=== PATIENT | male | born 1935 | race Caucasian/White ===

== ENCOUNTER 2017-07-23 18:57 | Inpatient (IN) | payer OTHER ==
[~2017-07-23] VITALS: Ht 182.9 cm; Wt 76.4 kg
[2017-07-23 20:18] LABS: BASOPHIL % 0.4 % (0-2); PLATELET COUNT 330 x10^3mcL (130-400)
[2017-07-23 20:20] LABS: RED CELL DISTRIBUTION WIDTH 17.5 % (11.5-14.5)
[2017-07-23 20:22] LABS: CALCIUM 8.5 mg/dL (8.5-10.1); CARBON DIOXIDE 31.5 mmol/L (21-32); CHLORIDE SERUM 103 mmol/L (98-107); CREATININE SERUM 1.2 mg/dL (0.7-1.3); GLUCOSE SERUM 115 mg/dL (74-106); POTASSIUM SERUM 3.5 mmol/L (3.5-5.1); SODIUM SERUM 142 mmol/L (136-145)
[2017-07-23 20:27] LABS: ALKALINE PHOSPHATASE 81 U/L (46-116); ALT/SGPT 18 U/L (16-63); BILIRUBIN TOTAL 0.3 mg/dL (0.20-1.00); TOTAL PROTEIN, SERUM 7.9 g/dL (6.4-8.2)
[2017-07-23 20:28] LABS: ALBUMIN 2.9 g/dL (3.4-5.0)
[2017-07-23 20:58] LABS: AST/SGOT 26 U/L (15-37)
[2017-07-23 22:06] LABS: UA SPECIFIC GRAVITY 1.015 (1.005-1.035); microscopic required? YES; urine erythrocyte TRACE (NEGATIVE)
[2017-07-23] MEDS ORDERED: ZESTRIL20 MG PO (22:54)
[2017-07-23] MEDS ORDERED: COLACE100 MG PO (22:55)
[2017-07-23] MEDS ORDERED: APAP500 MG PO (22:55)
[2017-07-23] MEDS ORDERED: SENNA8.6 M2 PO (22:56)
[2017-07-23 23:35] VITALS: BP 181/80
[2017-07-24] MEDS ORDERED: ARICEPT5 MG PO (00:06)
[2017-07-24 00:18] VITALS: BP 151/79
[2017-07-24 00:37] LABS: RED BLOOD CELLS 3.73 M/mm3 (4.52-5.90)
[2017-07-24 00:55] LABS: AMPHETAMINE QUAL UR NONE DETECTED (NEG <=1000)
[2017-07-24 01:09] LABS: IRON 36 ug/dL (65-170)
[2017-07-24 01:11] LABS: TOTAL IRON BINDING CAPACITY 225 ug/dL (250-450)
[2017-07-24 01:17] LABS: CHOLESTEROL/HDL RATIO 2.5; MAGNESIUM 1.9 mg/dL (1.8-2.4); PHOSPHOROUS 2.7 mg/dL (2.5-4.9)
[2017-07-24 01:30] LABS: FREE T4 0.84 ng/dL (0.76-1.46); FREE THYROXINE INDEX 1.7 ug/dL (1.4-4.5); T4(THYROXINE) 5.3 ug/dL (4.7-13.3)
[2017-07-24 01:53] LABS: T3 TOTAL 0.9 ng/mL
[2017-07-24 05:55] VITALS: BP 155/78
[2017-07-24 06:41] LABS: BASOPHIL % 0.4 % (0-2); PLATELET COUNT 269 x10^3mcL (130-400)
[2017-07-24 06:56] LABS: RED CELL DISTRIBUTION WIDTH 17.9 % (11.5-14.5)
[2017-07-24 06:58] LABS: CALCIUM 8.1 mg/dL (8.5-10.1); CARBON DIOXIDE 27.6 mmol/L (21-32); CHLORIDE SERUM 106 mmol/L (98-107); CREATININE SERUM 0.9 mg/dL (0.7-1.3); GLUCOSE SERUM 82 mg/dL (74-106); MAGNESIUM 1.8 mg/dL (1.8-2.4); PHOSPHOROUS 3.1 mg/dL (2.5-4.9); POTASSIUM SERUM 3.1 mmol/L (3.5-5.1); SODIUM SERUM 140 mmol/L (136-145)
[2017-07-24 14:10] VITALS: BP 155/77
[2017-07-24 18:00] VITALS: BP 174/90
[2017-07-24 19:45] VITALS: BP 139/67
[2017-07-25 05:58] VITALS: BP 190/90
[2017-07-25 06:02] VITALS: BP 182/92
[2017-07-25 06:27] LABS: CALCIUM 8.5 mg/dL (8.5-10.1); CARBON DIOXIDE 27.3 mmol/L (21-32); CHLORIDE SERUM 103 mmol/L (98-107); CREATININE SERUM 0.9 mg/dL (0.7-1.3); GLUCOSE SERUM 78 mg/dL (74-106); POTASSIUM SERUM 3.4 mmol/L (3.5-5.1); SODIUM SERUM 139 mmol/L (136-145)
[2017-07-25 06:38] LABS: BASOPHIL % 0.7 % (0-2); PLATELET COUNT 277 x10^3mcL (130-400)
[2017-07-25 06:56] VITALS: BP 180/82
[2017-07-25 09:43] VITALS: BP 183/84
[2017-07-25 12:30] VITALS: BP 163/73
[2017-07-25 20:54] VITALS: BP 183/87
[2017-07-26] VITALS (8 sets, daily range): BP systolic 119–182; BP diastolic 63–102
[2017-07-26 06:39] LABS: CALCIUM 8.4 mg/dL (8.5-10.1); CARBON DIOXIDE 27.7 mmol/L (21-32); CHLORIDE SERUM 104 mmol/L (98-107); CREATININE SERUM 0.8 mg/dL (0.7-1.3); GLUCOSE SERUM 107 mg/dL (74-106); POTASSIUM SERUM 3.4 mmol/L (3.5-5.1); SODIUM SERUM 138 mmol/L (136-145)
[2017-07-26 06:53] LABS: BASOPHIL % 0.3 % (0-2); PLATELET COUNT 257 x10^3mcL (130-400)
[2017-07-26 07:01] LABS: RED CELL DISTRIBUTION WIDTH 17.8 % (11.5-14.5)
[2017-07-27] VITALS (8 sets, daily range): BP systolic 152–178; BP diastolic 76–102
[2017-07-27 06:39] LABS: CALCIUM 8.9 mg/dL (8.5-10.1); CARBON DIOXIDE 26.7 mmol/L (21-32); CHLORIDE SERUM 102 mmol/L (98-107); CREATININE SERUM 0.9 mg/dL (0.7-1.3); GLUCOSE SERUM 104 mg/dL (74-106); MAGNESIUM 1.9 mg/dL (1.8-2.4); PHOSPHOROUS 3.4 mg/dL (2.5-4.9); POTASSIUM SERUM 3.5 mmol/L (3.5-5.1); SODIUM SERUM 138 mmol/L (136-145)
[2017-07-27 06:53] LABS: BASOPHIL % 0.3 % (0-2); PLATELET COUNT 316 x10^3mcL (130-400)
[2017-07-28 06:15] VITALS: BP 163/82
[2017-07-28 06:44] LABS: BASOPHIL % 0.2 % (0-2); PLATELET COUNT 274 x10^3mcL (130-400)
[2017-07-28 06:47] LABS: CALCIUM 8.9 mg/dL (8.5-10.1); CARBON DIOXIDE 27.8 mmol/L (21-32); CHLORIDE SERUM 103 mmol/L (98-107); CREATININE SERUM 0.9 mg/dL (0.7-1.3); GLUCOSE SERUM 100 mg/dL (74-106); MAGNESIUM 1.9 mg/dL (1.8-2.4); PHOSPHOROUS 3.6 mg/dL (2.5-4.9); POTASSIUM SERUM 3.3 mmol/L (3.5-5.1); SODIUM SERUM 137 mmol/L (136-145)
[2017-07-28 08:00] VITALS: BP 147/74
[2017-07-28 11:05] VITALS: Ht 182.9 cm; Wt 76.4 kg
[2017-07-28 14:10] VITALS: BP 154/67
[2017-07-28 20:08] VITALS: BP 132/65
[2017-07-29 05:56] VITALS: BP 139/77
[2017-07-29 07:06] LABS: BASOPHIL % 0.4 % (0-2); PLATELET COUNT 261 x10^3mcL (130-400)
[2017-07-29 07:19] LABS: RED CELL DISTRIBUTION WIDTH 17.8 % (11.5-14.5)
[2017-07-29 07:20] LABS: CALCIUM 8.9 mg/dL (8.5-10.1); CARBON DIOXIDE 25.7 mmol/L (21-32); CHLORIDE SERUM 107 mmol/L (98-107); GLUCOSE SERUM 99 mg/dL (74-106); PHOSPHOROUS 3.4 mg/dL (2.5-4.9); POTASSIUM SERUM 3.6 mmol/L (3.5-5.1); SODIUM SERUM 141 mmol/L (136-145)
[2017-07-29 14:11] VITALS: BP 156/71
[2017-07-29 18:12] VITALS: BP 156/80
[2017-07-29 20:45] VITALS: BP 170/83
[2017-07-30 05:33] VITALS: BP 179/86
[2017-07-30 06:08] LABS: BASOPHIL % 0.6 % (0-2); PLATELET COUNT 293 x10^3mcL (130-400)
[2017-07-30 06:24] LABS: RED CELL DISTRIBUTION WIDTH 18.3 % (11.5-14.5)
[2017-07-30 06:36] LABS: CALCIUM 8.7 mg/dL (8.5-10.1); CARBON DIOXIDE 25.7 mmol/L (21-32); CHLORIDE SERUM 105 mmol/L (98-107); CREATININE SERUM 0.8 mg/dL (0.7-1.3); GLUCOSE SERUM 105 mg/dL (74-106); MAGNESIUM 1.7 mg/dL (1.8-2.4); PHOSPHOROUS 3.2 mg/dL (2.5-4.9); POTASSIUM SERUM 3.3 mmol/L (3.5-5.1); SODIUM SERUM 139 mmol/L (136-145)
[2017-07-30 06:45] VITALS: BP 135/68
[2017-07-30 08:15] VITALS: BP 106/56
[2017-07-30 18:06] VITALS: BP 156/74
[2017-07-31 06:05] LABS: BASOPHIL % 0.3 % (0-2); PLATELET COUNT 303 x10^3mcL (130-400)
[2017-07-31 06:32] LABS: RED CELL DISTRIBUTION WIDTH 17.8 % (11.5-14.5)
[2017-07-31 06:33] VITALS: BP 185/92
[2017-07-31 06:37] LABS: CALCIUM 8.8 mg/dL (8.5-10.1); CHLORIDE SERUM 106 mmol/L (98-107); CREATININE SERUM 0.8 mg/dL (0.7-1.3); GLUCOSE SERUM 96 mg/dL (74-106); MAGNESIUM 1.6 mg/dL (1.8-2.4); PHOSPHOROUS 2.9 mg/dL (2.5-4.9); POTASSIUM SERUM 3.4 mmol/L (3.5-5.1); SODIUM SERUM 140 mmol/L (136-145)
[2017-07-31 07:23] VITALS: BP 159/85
[2017-07-31 10:45] VITALS: BP 163/79
[2017-07-31 17:37] VITALS: BP 164/79
[2017-07-31 19:42] VITALS: BP 142/52
[2017-08-01 05:51] VITALS: BP 157/85
[2017-08-01 07:45] VITALS: BP 166/67
[2017-08-01 08:26] LABS: BASOPHIL % 0.7 % (0-2); PLATELET COUNT 332 x10^3mcL (130-400)
[2017-08-01 08:33] LABS: RED CELL DISTRIBUTION WIDTH 17.5 % (11.5-14.5)
[2017-08-01 11:01] LABS: CALCIUM 8.8 mg/dL (8.5-10.1); CARBON DIOXIDE 28.2 mmol/L (21-32); CHLORIDE SERUM 105 mmol/L (98-107); CREATININE SERUM 0.7 mg/dL (0.7-1.3); GLUCOSE SERUM 104 mg/dL (74-106); MAGNESIUM 1.8 mg/dL (1.8-2.4); PHOSPHOROUS 3.1 mg/dL (2.5-4.9); POTASSIUM SERUM 3.3 mmol/L (3.5-5.1); SODIUM SERUM 139 mmol/L (136-145)
[2017-08-01 12:36] VITALS: BP 127/76
[2017-08-01 18:36] VITALS: BP 140/60
[2017-08-01 21:00] VITALS: BP 156/72
[2017-08-02 17:26] VITALS: BP 194/87
[2017-08-02 18:07] VITALS: BP 139/74
[2017-08-03 06:00] VITALS: BP 126/75
[2017-08-03 09:00] VITALS: BP 124/73
[2017-08-03 11:36] LABS: BASOPHIL % 0.7 % (0-2); PLATELET COUNT 354 x10^3mcL (130-400)
[2017-08-03 11:37] LABS: RED CELL DISTRIBUTION WIDTH 17.6 % (11.5-14.5)
[2017-08-03 11:59] VITALS: BP 111/56
[2017-08-03 12:07] LABS: CALCIUM 9.1 mg/dL (8.5-10.1); CARBON DIOXIDE 28.4 mmol/L (21-32); CHLORIDE SERUM 101 mmol/L (98-107); CREATININE SERUM 0.9 mg/dL (0.7-1.3); GLUCOSE SERUM 133 mg/dL (74-106); MAGNESIUM 1.7 mg/dL (1.8-2.4); POTASSIUM SERUM 3.5 mmol/L (3.5-5.1); SODIUM SERUM 137 mmol/L (136-145)
[2017-08-03 17:27] VITALS: BP 119/87
[2017-08-03 20:19] VITALS: BP 101/53
[2017-08-04 05:40] VITALS: BP 162/75
[2017-08-04 06:54] LABS: BASOPHIL % 0.5 % (0-2); PLATELET COUNT 383 x10^3mcL (130-400)
[2017-08-04 07:02] LABS: RED CELL DISTRIBUTION WIDTH 17.5 % (11.5-14.5)
[2017-08-04 07:05] LABS: CALCIUM 8.8 mg/dL (8.5-10.1); CARBON DIOXIDE 31.5 mmol/L (21-32); CHLORIDE SERUM 101 mmol/L (98-107); GLUCOSE SERUM 85 mg/dL (74-106); MAGNESIUM 1.9 mg/dL (1.8-2.4); PHOSPHOROUS 3.7 mg/dL (2.5-4.9); POTASSIUM SERUM 3.7 mmol/L (3.5-5.1); SODIUM SERUM 136 mmol/L (136-145)
[2017-08-04 08:00] VITALS: BP 102/46
[2017-08-04 10:15] VITALS: BP 117/59
[2017-08-04 13:46] VITALS: BP 138/65
[2017-08-04 16:34] VITALS: BP 99/54
[2017-08-04 19:30] VITALS: BP 138/65
[2017-08-05 05:24] VITALS: BP 162/69
[2017-08-05 06:27] LABS: BASOPHIL % 1.1 % (0-2)
[2017-08-05 06:42] LABS: PLATELET COUNT 401 x10^3mcL (130-400); RED CELL DISTRIBUTION WIDTH 17.3 % (11.5-14.5)
[2017-08-05 06:44] LABS: CALCIUM 9.2 mg/dL (8.5-10.1); CARBON DIOXIDE 30.6 mmol/L (21-32); CHLORIDE SERUM 101 mmol/L (98-107); GLUCOSE SERUM 92 mg/dL (74-106); POTASSIUM SERUM 3.8 mmol/L (3.5-5.1); SODIUM SERUM 138 mmol/L (136-145)
[2017-08-05 07:30] VITALS: BP 140/65
[2017-08-05 13:00] VITALS: BP 140/65
[2017-08-05 19:28] VITALS: BP 119/51
[2017-08-06 04:58] VITALS: BP 168/70
[2017-08-06 09:01] VITALS: BP 120/63
[2017-08-06 09:53] LABS: CALCIUM 8.4 mg/dL (8.5-10.1); CARBON DIOXIDE 32.1 mmol/L (21-32); CHLORIDE SERUM 102 mmol/L (98-107); CREATININE SERUM 1.1 mg/dL (0.7-1.3); GLUCOSE SERUM 118 mg/dL (74-106); POTASSIUM SERUM 3.8 mmol/L (3.5-5.1); SODIUM SERUM 139 mmol/L (136-145)
[2017-08-06 12:32] VITALS: BP 126/61
[2017-08-06 17:08] VITALS: BP 156/68
[2017-08-06 20:53] VITALS: BP 165/73
[2017-08-06 22:53] VITALS: BP 165/73
[2017-08-07 05:45] VITALS: BP 160/75
[2017-08-07 07:46] LABS: PLATELET COUNT 356 x10^3mcL (130-400)
[2017-08-07 07:55] LABS: RED CELL DISTRIBUTION WIDTH 16.8 % (11.5-14.5)
[2017-08-07 08:01] LABS: CALCIUM 8.7 mg/dL (8.5-10.1); CHLORIDE SERUM 104 mmol/L (98-107); CREATININE SERUM 0.8 mg/dL (0.7-1.3); GLUCOSE SERUM 89 mg/dL (74-106); MAGNESIUM 1.7 mg/dL (1.8-2.4); PHOSPHOROUS 3.1 mg/dL (2.5-4.9); POTASSIUM SERUM 3.8 mmol/L (3.5-5.1); SODIUM SERUM 138 mmol/L (136-145)
[2017-08-07 09:30] VITALS: BP 115/58
[2017-08-07] MEDS ORDERED: CEL20 PO (13:29)
[2017-08-07] MEDS ORDERED: VITC PO (13:29)
[2017-08-07] MEDS ORDERED: ISO10 PO (13:29)
[2017-08-07] MEDS ORDERED: FERL PO (13:29)
[2017-08-07] MEDS ORDERED: CYCLOBENZAPRINE5 MG PO (13:29)
[2017-08-07] MEDS ORDERED: QUETIAPINE FUMA25 M1 PO (13:29)
[2017-08-07] MEDS ORDERED: METOPROLOL TART25 M1 PO (13:29)
[2017-08-07] MEDS ORDERED: ZES20 PO (13:29)
[2017-08-07 14:47] VITALS: BP 149/72
[2017-08-07 20:42] VITALS: BP 164/62
[2017-08-08] MEDS ORDERED: VITC PO (11:34)
[2017-08-08] MEDS ORDERED: CYCLOBENZAPRINE5 MG PO (11:34)
[2017-08-08] MEDS ORDERED: FEROSUL325 MG PO (11:34)
[2017-08-08] MEDS ORDERED: ZES20 PO (11:34)
[2017-08-08] MEDS ORDERED: ARICEPT5 MG PO (11:34)
== END 2017-08-07 21:23 | disposition home health service (06) | DRG 56 ==
LOC: ED 18:57 → DU 22:44 → MU 07-30 08:53 → DU 08-02 16:51 → MU 08-03 18:00
PROVIDERS: Emergency Medicine; Family Medicine; Student in an Organized Health Care Education/Training Program
DX: G30.9 Alzheimer's disease, unspecified (principal); G93.41 Metabolic encephalopathy; N17.0 Acute kidney failure with tubular necrosis; I42.0 Dilated cardiomyopathy; E44.0 Moderate protein-calorie malnutrition; F33.1 Major depressive disorder, recurrent, moderate; F02.80 Dementia in other diseases classified elsewhere, unspecified severity, without behavioral disturbance, psychotic disturbance, mood disturbance, and anxiety; I16.0 Hypertensive urgency; I69.392 Facial weakness following cerebral infarction; R41.9 Unspecified symptoms and signs involving cognitive functions and awareness; J32.2 Chronic ethmoidal sinusitis; M50.33 Other cervical disc degeneration, cervicothoracic region; M50.31 Other cervical disc degeneration, high cervical region; M50.321 Other cervical disc degeneration at C4-C5 level; M50.322 Other cervical disc degeneration at C5-C6 level; M50.323 Other cervical disc degeneration at C6-C7 level; D63.8 Anemia in other chronic diseases classified elsewhere; E87.6 Hypokalemia; E83.42 Hypomagnesemia; Z68.24 Body mass index [BMI] 24.0-24.9, adult; Z96.642 Presence of left artificial hip joint; Z85.820 Personal history of malignant melanoma of skin; Z66 Do not resuscitate
CPT/HCPCS: 83880; 84439; 92610; 97110-GP; 97116-GP; 97530-GP; J0360; J1630; J1885; J2060; J3480; J3490; J7030; Q0092

== ENCOUNTER 2017-09-05 03:15 | Emergency (ER) | payer OTHER ==
[~2017-09-05] VITALS: Ht 188 cm; Wt 79.4 kg
[~2017-09-05 03:15] MED LIST: APAP500 MG PO; ARICEPT5 MG PO; CEL20 PO; COLACE100 MG PO; CYCLOBENZAPRINE5 MG PO; FERL PO; FEROSUL325 MG PO; ISO10 PO; METOPROLOL TART25 M1 PO; QUETIAPINE FUMA25 M1 PO; SENNA8.6 M2 PO; VITC PO; ZES20 PO; ZESTRIL20 MG PO
[2017-09-05 03:23] VITALS: Ht 188 cm; Wt 79.4 kg
[2017-09-05 07:15] VITALS: BP 165/75
== END 2017-09-05 07:58 | disposition home or self-care (01) ==
LOC: ED 03:15
DX: S01.01XA Laceration without foreign body of scalp, initial encounter (principal); S51.811A Laceration without foreign body of right forearm, initial encounter; I10 Essential (primary) hypertension; F03.90 Unspecified dementia, unspecified severity, without behavioral disturbance, psychotic disturbance, mood disturbance, and anxiety; Z86.73 Personal history of transient ischemic attack (TIA), and cerebral infarction without residual deficits; Z88.8 Allergy status to other drugs, medicaments and biological substances; W18.30XA Fall on same level, unspecified, initial encounter; Y93.89 Activity, other specified; Y99.8 Other external cause status; Y92.89 Other specified places as the place of occurrence of the external cause

== ENCOUNTER 2017-09-22 01:42 | Emergency (ER) | payer OTHER ==
[~2017-09-22] VITALS: Ht 182.9 cm; Wt 79.4 kg
[2017-09-22 01:48] VITALS: Ht 182.9 cm; Wt 79.4 kg
[2017-09-22 03:31] VITALS: BP 177/97
== END 2017-09-22 03:31 | disposition home or self-care (01) ==
LOC: ED 01:42
DX: S01.01XA Laceration without foreign body of scalp, initial encounter (principal); I10 Essential (primary) hypertension; F03.90 Unspecified dementia, unspecified severity, without behavioral disturbance, psychotic disturbance, mood disturbance, and anxiety; Z88.8 Allergy status to other drugs, medicaments and biological substances; W01.0XXA Fall on same level from slipping, tripping and stumbling without subsequent striking against object, initial encounter; Y93.89 Activity, other specified; Y99.8 Other external cause status; Y92.89 Other specified places as the place of occurrence of the external cause

== ENCOUNTER 2017-09-23 19:10 | Emergency (ER) | payer OTHER ==
[~2017-09-23] VITALS: Ht 175.3 cm; Wt 74.8 kg
[2017-09-23 19:16] VITALS: Ht 175.3 cm; Wt 74.8 kg
[2017-09-23 19:58] LABS: CALCIUM 8.9 mg/dL (8.5-10.1); CARBON DIOXIDE 27.8 mmol/L (21-32); CHLORIDE SERUM 103 mmol/L (98-107); CREATININE SERUM 1.1 mg/dL (0.7-1.3); GLUCOSE SERUM 111 mg/dL (74-106); POTASSIUM SERUM 3.5 mmol/L (3.5-5.1); SODIUM SERUM 140 mmol/L (136-145)
[2017-09-23 20:00] LABS: BASOPHIL % 0.5 % (0-2); PLATELET COUNT 350 x10^3mcL (130-400)
[2017-09-23 20:02] LABS: RED CELL DISTRIBUTION WIDTH 17.3 % (11.5-14.5)
[2017-09-23 20:10] LABS: ALBUMIN 2.9 g/dL (3.4-5.0); ALKALINE PHOSPHATASE 93 U/L (46-116); ALT/SGPT 13 U/L (16-63); AMYLASE 60 U/L (25-115); AST/SGOT 19 U/L (15-37); BILIRUBIN TOTAL 0.67 mg/dL (0.20-1.00); CHOLESTEROL 149 mg/dL (<200); HDL CHOLESTEROL 53 mg/dL (40-60); LIPASE 188 IU/L (73-393); T4(THYROXINE) 5.8 ug/dL (4.7-13.3); TOTAL PROTEIN, SERUM 7.9 g/dL (6.4-8.2)
[2017-09-23 20:42] LABS: microscopic required? YES; urine erythrocyte 1+ (NEGATIVE)
[2017-09-23 20:51] LABS: AMPHETAMINE QUAL UR NONE DETECTED (NEG <=1000)
[2017-09-23 23:52] VITALS: BP 179/85
== END 2017-09-23 23:52 | disposition home or self-care (01) ==
LOC: ED 19:10
PROVIDERS: Emergency Medicine
DX: S51.011A Laceration without foreign body of right elbow, initial encounter (principal); S01.01XA Laceration without foreign body of scalp, initial encounter; F03.90 Unspecified dementia, unspecified severity, without behavioral disturbance, psychotic disturbance, mood disturbance, and anxiety; I10 Essential (primary) hypertension; Z88.8 Allergy status to other drugs, medicaments and biological substances; Z66 Do not resuscitate; W18.39XA Other fall on same level, initial encounter; Y93.89 Activity, other specified; Y92.89 Other specified places as the place of occurrence of the external cause; Y99.8 Other external cause status
CPT/HCPCS: 36415; 83880; 90715; Q0092

== ENCOUNTER 2017-10-16 21:12 | Emergency (ER) | payer OTHER ==
[~2017-10-16] VITALS: Ht 177.8 cm; Wt 79.4 kg
[2017-10-16 21:29] VITALS: Ht 177.8 cm; Wt 79.4 kg
[2017-10-17 01:00] VITALS: BP 164/69
== END 2017-10-17 01:00 | disposition home or self-care (01) ==
LOC: ED 21:12
DX: S01.01XA Laceration without foreign body of scalp, initial encounter (principal); I10 Essential (primary) hypertension; I63.9 Cerebral infarction, unspecified; G30.9 Alzheimer's disease, unspecified; F02.80 Dementia in other diseases classified elsewhere, unspecified severity, without behavioral disturbance, psychotic disturbance, mood disturbance, and anxiety; Z88.8 Allergy status to other drugs, medicaments and biological substances; W01.0XXA Fall on same level from slipping, tripping and stumbling without subsequent striking against object, initial encounter; Y93.89 Activity, other specified; Y92.89 Other specified places as the place of occurrence of the external cause; Y99.8 Other external cause status
CPT/HCPCS: J2001

== ENCOUNTER 2017-10-18 06:08 | Emergency (ER) | payer OTHER ==
[~2017-10-18] VITALS: Ht 175.3 cm; Wt 74.8 kg
[2017-10-18 06:17] VITALS: Ht 175.3 cm; Wt 74.8 kg
[2017-10-18 08:43] VITALS: BP 180/94
== END 2017-10-18 09:20 | disposition home or self-care (01) ==
LOC: ED 06:08
DX: S51.811A Laceration without foreign body of right forearm, initial encounter (principal); I10 Essential (primary) hypertension; Z88.8 Allergy status to other drugs, medicaments and biological substances; F03.90 Unspecified dementia, unspecified severity, without behavioral disturbance, psychotic disturbance, mood disturbance, and anxiety; Z86.73 Personal history of transient ischemic attack (TIA), and cerebral infarction without residual deficits; W19.XXXA Unspecified fall, initial encounter; Y93.89 Activity, other specified; Y92.89 Other specified places as the place of occurrence of the external cause; Y99.8 Other external cause status
CPT/HCPCS: 90715; J2001

== ENCOUNTER 2017-11-08 00:29 | Emergency (ER) | payer OTHER ==
[~2017-11-08] VITALS: Ht 177.8 cm; Wt 79.4 kg
[2017-11-08 00:40] VITALS: Ht 177.8 cm; Wt 79.4 kg
[2017-11-08 03:10] VITALS: BP 153/78
== END 2017-11-08 03:21 | disposition home or self-care (01) ==
LOC: ED 00:29
DX: S01.01XA Laceration without foreign body of scalp, initial encounter (principal); S09.90XA Unspecified injury of head, initial encounter; F03.90 Unspecified dementia, unspecified severity, without behavioral disturbance, psychotic disturbance, mood disturbance, and anxiety; I10 Essential (primary) hypertension; Z88.8 Allergy status to other drugs, medicaments and biological substances; W19.XXXA Unspecified fall, initial encounter; Y93.89 Activity, other specified; Y92.89 Other specified places as the place of occurrence of the external cause; Y99.8 Other external cause status
CPT/HCPCS: J2001

== ENCOUNTER 2018-06-01 17:40 | Inpatient (IN) | payer OTHER ==
[~2018-06-01] VITALS: Ht 182.9 cm; Wt 62.6 kg
[2018-06-01 17:57] VITALS: Ht 182.9 cm; Wt 62.6 kg
[2018-06-01 18:50] LABS: UA SPECIFIC GRAVITY 1.025 (1.005-1.035); microscopic required? YES; urine erythrocyte 1+ (NEGATIVE)
[2018-06-01 20:18] LABS: BASOPHIL % 0.4 % (0-2); PLATELET COUNT 385 x10^3mcL (130-400)
[2018-06-01 20:23] LABS: CALCIUM 9.7 mg/dL (8.5-10.1); CARBON DIOXIDE 27.9 mmol/L (21-32); CHLORIDE SERUM 104 mmol/L (98-107); CREATININE SERUM 1.7 mg/dL (0.7-1.3); GLUCOSE SERUM 103 mg/dL (74-106); SODIUM SERUM 140 mmol/L (136-145)
[2018-06-01 20:26] LABS: MAGNESIUM 1.8 mg/dL (1.8-2.4); PHOSPHOROUS 2.6 mg/dL (2.5-4.9)
[2018-06-01 20:39] LABS: CK-MB 7.2 ng/mL (0-3.6)
[2018-06-01 23:14] LABS: T3 TOTAL 0.81 ng/mL
[2018-06-01] MEDS ORDERED: SINEMET 25-1001 TAB PO (23:16)
[2018-06-01] MEDS ORDERED: ENSURE HIGH PR237 ML PO (23:17)
[2018-06-01] MEDS ORDERED: ARICEPT10 MG PO (23:17)
[2018-06-01] MEDS ORDERED: LEADER MELATONIN5 MG PO (23:18)
[2018-06-01] MEDS ORDERED: FLO4 PO (23:18)
[2018-06-01] MEDS ORDERED: HALOPERIDOL2 MG PO (23:18)
[2018-06-01] MEDS ORDERED: TRAZODONE50 M1 PO (23:19)
[2018-06-01 23:22] LABS: FREE T4 1.26 ng/dL (0.76-1.46); FREE THYROXINE INDEX 2.6 ug/dL (1.4-4.5); T4(THYROXINE) 7.3 ug/dL (4.7-13.3)
[2018-06-02] VITALS (8 sets, daily range): BP systolic 118–168; BP diastolic 59–88
[2018-06-02 05:33] LABS: CALCIUM 8.8 mg/dL (8.5-10.1); CARBON DIOXIDE 25.5 mmol/L (21-32); CHLORIDE SERUM 106 mmol/L (98-107); CREATININE SERUM 1.4 mg/dL (0.7-1.3); GLUCOSE SERUM 84 mg/dL (74-106); MAGNESIUM 1.9 mg/dL (1.8-2.4); PHOSPHOROUS 2.9 mg/dL (2.5-4.9); POTASSIUM SERUM 4.4 mmol/L (3.5-5.1); SODIUM SERUM 141 mmol/L (136-145)
[2018-06-02 05:39] LABS: BASOPHIL % 0.4 % (0-2); PLATELET COUNT 323 x10^3mcL (130-400); RED CELL DISTRIBUTION WIDTH 13.7 % (11.5-14.5)
[2018-06-02 12:19] LABS: IRON 32 ug/dL (65-170); TOTAL IRON BINDING CAPACITY 185 ug/dL (250-450)
[2018-06-03 05:44] VITALS: BP 158/63
[2018-06-03 06:18] LABS: BASOPHIL % 0.7 % (0-2); PLATELET COUNT 264 x10^3mcL (130-400); RED CELL DISTRIBUTION WIDTH 13.6 % (11.5-14.5)
[2018-06-03 06:24] LABS: CALCIUM 8.6 mg/dL (8.5-10.1); CARBON DIOXIDE 28.4 mmol/L (21-32); CHLORIDE SERUM 107 mmol/L (98-107); GLUCOSE SERUM 78 mg/dL (74-106); POTASSIUM SERUM 3.8 mmol/L (3.5-5.1); SODIUM SERUM 142 mmol/L (136-145)
[2018-06-03 08:52] VITALS: BP 132/74
[2018-06-03 08:59] VITALS: BP 155/72
[2018-06-03] MEDS ORDERED: NOR5 PO (15:17)
[2018-06-03 15:21] VITALS: BP 155/72
[2018-06-03 17:35] VITALS: BP 157/86
[2018-06-03 21:00] VITALS: BP 151/84
[2018-06-04 05:41] VITALS: BP 121/64
[2018-06-04 09:20] VITALS: BP 141/64
[2018-06-04 09:30] LABS: BASOPHIL % 0.7 % (0-2); PLATELET COUNT 255 x10^3mcL (130-400); RED CELL DISTRIBUTION WIDTH 13.8 % (11.5-14.5)
[2018-06-04 10:16] LABS: CALCIUM 8.3 mg/dL (8.5-10.1); CARBON DIOXIDE 30.2 mmol/L (21-32); CHLORIDE SERUM 108 mmol/L (98-107); GLUCOSE SERUM 136 mg/dL (74-106); MAGNESIUM 1.8 mg/dL (1.8-2.4); PHOSPHOROUS 2.9 mg/dL (2.5-4.9); POTASSIUM SERUM 3.7 mmol/L (3.5-5.1); SODIUM SERUM 142 mmol/L (136-145)
[2018-06-04 12:10] VITALS: BP 139/49
[2018-06-04 15:55] VITALS: BP 136/89
[2018-06-04 20:20] VITALS: BP 177/87
[2018-06-04 23:51] VITALS: BP 151/98
[2018-06-05 05:28] VITALS: BP 147/89
[2018-06-05 06:27] LABS: BASOPHIL % 0.4 % (0-2); PLATELET COUNT 288 x10^3mcL (130-400); RED CELL DISTRIBUTION WIDTH 13.7 % (11.5-14.5)
[2018-06-05 06:48] LABS: CALCIUM 8.7 mg/dL (8.5-10.1); CARBON DIOXIDE 26.4 mmol/L (21-32); CHLORIDE SERUM 106 mmol/L (98-107); CREATININE SERUM 0.8 mg/dL (0.7-1.3); GLUCOSE SERUM 89 mg/dL (74-106); MAGNESIUM 1.5 mg/dL (1.8-2.4); POTASSIUM SERUM 3.4 mmol/L (3.5-5.1); SODIUM SERUM 142 mmol/L (136-145)
[2018-06-05 09:14] VITALS: BP 168/74
[2018-06-05 12:54] VITALS: BP 161/85
[2018-06-05 17:05] VITALS: BP 175/71
[2018-06-05 20:26] VITALS: BP 128/52
[2018-06-06 05:47] VITALS: BP 151/64
[2018-06-06 06:30] LABS: BASOPHIL % 0.1 % (0-2); PLATELET COUNT 292 x10^3mcL (130-400); RED CELL DISTRIBUTION WIDTH 13.3 % (11.5-14.5)
[2018-06-06 07:00] LABS: CALCIUM 8.6 mg/dL (8.5-10.1); CARBON DIOXIDE 28.9 mmol/L (21-32); CHLORIDE SERUM 106 mmol/L (98-107); CREATININE SERUM 0.9 mg/dL (0.7-1.3); GLUCOSE SERUM 98 mg/dL (74-106); MAGNESIUM 1.6 mg/dL (1.8-2.4); POTASSIUM SERUM 3.4 mmol/L (3.5-5.1); SODIUM SERUM 140 mmol/L (136-145)
[2018-06-06 08:29] VITALS: BP 144/68
[2018-06-06 12:55] VITALS: BP 103/52
[2018-06-06 17:21] VITALS: BP 129/69
[2018-06-06 20:54] VITALS: BP 147/71
[2018-06-07 05:53] VITALS: BP 145/68
[2018-06-07 07:07] LABS: CALCIUM 8.4 mg/dL (8.5-10.1); CARBON DIOXIDE 27.2 mmol/L (21-32); CHLORIDE SERUM 105 mmol/L (98-107); CREATININE SERUM 0.9 mg/dL (0.7-1.3); GLUCOSE SERUM 103 mg/dL (74-106); MAGNESIUM 1.7 mg/dL (1.8-2.4); PHOSPHOROUS 2.6 mg/dL (2.5-4.9); POTASSIUM SERUM 3.7 mmol/L (3.5-5.1); SODIUM SERUM 140 mmol/L (136-145)
[2018-06-07 07:11] LABS: BASOPHIL % 0.3 % (0-2); PLATELET COUNT 308 x10^3mcL (130-400); RED CELL DISTRIBUTION WIDTH 14.2 % (11.5-14.5)
[2018-06-07 09:20] VITALS: BP 154/68
[2018-06-07 13:17] VITALS: BP 143/70
[2018-06-07 16:39] VITALS: BP 143/70
[2018-06-07 16:56] VITALS: BP 122/52
[2018-06-07 20:39] VITALS: BP 150/65
[2018-06-08 06:03] VITALS: BP 144/64
[2018-06-08 07:12] LABS: BASOPHIL % 0.5 % (0-2); PLATELET COUNT 278 x10^3mcL (130-400); RED CELL DISTRIBUTION WIDTH 14.3 % (11.5-14.5)
[2018-06-08 07:15] LABS: CALCIUM 8.4 mg/dL (8.5-10.1); CARBON DIOXIDE 26.4 mmol/L (21-32); CHLORIDE SERUM 107 mmol/L (98-107); CREATININE SERUM 0.9 mg/dL (0.7-1.3); GLUCOSE SERUM 89 mg/dL (74-106); MAGNESIUM 1.8 mg/dL (1.8-2.4); PHOSPHOROUS 2.7 mg/dL (2.5-4.9); POTASSIUM SERUM 3.7 mmol/L (3.5-5.1); SODIUM SERUM 141 mmol/L (136-145)
[2018-06-08 09:12] VITALS: BP 149/52
[2018-06-08 11:14] VITALS: BP 149/52
[2018-06-08 13:47] VITALS: BP 142/59
[2018-06-08 16:17] VITALS: BP 148/66
[2018-06-08 20:38] VITALS: BP 152/55
[2018-06-09 05:37] VITALS: BP 139/59
[2018-06-09 09:55] VITALS: BP 113/56
[2018-06-09 14:14] VITALS: BP 151/63
[2018-06-09 16:57] VITALS: BP 151/69
[2018-06-09 21:06] VITALS: BP 175/74
[2018-06-10 05:48] VITALS: BP 122/46
[2018-06-10 07:37] LABS: CALCIUM 8.8 mg/dL (8.5-10.1); CARBON DIOXIDE 29.7 mmol/L (21-32); CHLORIDE SERUM 104 mmol/L (98-107); CREATININE SERUM 1.2 mg/dL (0.7-1.3); GLUCOSE SERUM 120 mg/dL (74-106); POTASSIUM SERUM 3.7 mmol/L (3.5-5.1); SODIUM SERUM 140 mmol/L (136-145)
[2018-06-10 07:49] LABS: BASOPHIL % 0.4 % (0-2); PLATELET COUNT 315 x10^3mcL (130-400)
[2018-06-10 09:38] VITALS: BP 142/53
[2018-06-10 12:51] VITALS: BP 122/55
[2018-06-10 17:14] VITALS: BP 137/81
[2018-06-10 21:17] VITALS: BP 147/74
[2018-06-11 05:38] VITALS: BP 134/61
[2018-06-11 10:16] VITALS: BP 108/49
[2018-06-11 13:35] VITALS: BP 101/61
[2018-06-11 17:04] VITALS: BP 137/62
[2018-06-11 21:17] VITALS: BP 162/85
[2018-06-12 06:10] VITALS: BP 126/51
[2018-06-12 06:58] LABS: BASOPHIL % 0.4 % (0-2); PLATELET COUNT 342 x10^3mcL (130-400); RED CELL DISTRIBUTION WIDTH 13.9 % (11.5-14.5)
[2018-06-12 07:36] LABS: CALCIUM 9.1 mg/dL (8.5-10.1); CARBON DIOXIDE 27.8 mmol/L (21-32); CHLORIDE SERUM 105 mmol/L (98-107); CREATININE SERUM 1.1 mg/dL (0.7-1.3); GLUCOSE SERUM 84 mg/dL (74-106); MAGNESIUM 1.9 mg/dL (1.8-2.4); PHOSPHOROUS 3.3 mg/dL (2.5-4.9); POTASSIUM SERUM 4.1 mmol/L (3.5-5.1); SODIUM SERUM 141 mmol/L (136-145)
[2018-06-12 09:26] VITALS: BP 114/50
[2018-06-12 13:28] VITALS: BP 120/52
[2018-06-12 17:40] VITALS: BP 122/76
[2018-06-12 21:47] VITALS: BP 159/72
[2018-06-13 05:39] VITALS: BP 144/64
[2018-06-13 09:50] VITALS: BP 156/48
[2018-06-13 12:21] VITALS: BP 155/64
[2018-06-13 17:14] VITALS: BP 135/55
[2018-06-13 20:49] VITALS: BP 166/82
[2018-06-14 05:42] VITALS: BP 125/70
[2018-06-14 07:24] LABS: BASOPHIL % 0.8 % (0-2); PLATELET COUNT 388 x10^3mcL (130-400); RED CELL DISTRIBUTION WIDTH 14.5 % (11.5-14.5)
[2018-06-14 07:31] LABS: CALCIUM 8.9 mg/dL (8.5-10.1); CARBON DIOXIDE 28.1 mmol/L (21-32); CHLORIDE SERUM 107 mmol/L (98-107); CREATININE SERUM 1.1 mg/dL (0.7-1.3); GLUCOSE SERUM 91 mg/dL (74-106); PHOSPHOROUS 3.1 mg/dL (2.5-4.9); POTASSIUM SERUM 4.4 mmol/L (3.5-5.1); SODIUM SERUM 141 mmol/L (136-145)
[2018-06-14 09:17] VITALS: BP 144/43
[2018-06-14 12:33] VITALS: BP 144/43
[2018-06-14 13:05] VITALS: BP 148/52
[2018-06-14 16:54] VITALS: BP 135/75
[2018-06-14 21:51] VITALS: BP 152/50
[2018-06-15 05:56] VITALS: BP 123/53
[2018-06-15 09:31] VITALS: BP 159/81
[2018-06-15 12:47] VITALS: BP 119/46
[2018-06-15 17:52] VITALS: BP 117/40
[2018-06-15 21:23] VITALS: BP 142/74
[2018-06-16 05:24] VITALS: BP 134/61
[2018-06-16 06:24] LABS: BASOPHIL % 0.7 % (0-2); PLATELET COUNT 373 x10^3mcL (130-400); RED CELL DISTRIBUTION WIDTH 13.2 % (11.5-14.5)
[2018-06-16 06:41] LABS: CALCIUM 8.8 mg/dL (8.5-10.1); CHLORIDE SERUM 106 mmol/L (98-107); GLUCOSE SERUM 85 mg/dL (74-106); MAGNESIUM 1.7 mg/dL (1.8-2.4); PHOSPHOROUS 3.1 mg/dL (2.5-4.9); POTASSIUM SERUM 4.1 mmol/L (3.5-5.1); SODIUM SERUM 137 mmol/L (136-145)
[2018-06-16 09:06] VITALS: BP 113/65
[2018-06-16 12:23] VITALS: BP 143/67
[2018-06-16 17:57] VITALS: BP 142/73
[2018-06-16 20:49] VITALS: BP 116/54
[2018-06-17 05:20] VITALS: BP 125/58
[2018-06-17 06:15] LABS: BASOPHIL % 0.9 % (0-2); PLATELET COUNT 356 x10^3mcL (130-400); RED CELL DISTRIBUTION WIDTH 13.7 % (11.5-14.5)
[2018-06-17 06:23] LABS: CALCIUM 8.4 mg/dL (8.5-10.1); CARBON DIOXIDE 27.7 mmol/L (21-32); CHLORIDE SERUM 104 mmol/L (98-107); CREATININE SERUM 1.1 mg/dL (0.7-1.3); GLUCOSE SERUM 85 mg/dL (74-106); MAGNESIUM 1.8 mg/dL (1.8-2.4); PHOSPHOROUS 3.1 mg/dL (2.5-4.9); POTASSIUM SERUM 3.4 mmol/L (3.5-5.1); SODIUM SERUM 133 mmol/L (136-145)
[2018-06-17 09:38] VITALS: BP 132/55
[2018-06-17 09:53] VITALS: BP 132/55
[2018-06-17 12:57] VITALS: BP 126/51
[2018-06-17 17:19] VITALS: BP 147/57
[2018-06-17 20:42] VITALS: BP 120/82
[2018-06-18 06:12] VITALS: BP 138/59
[2018-06-18 09:50] VITALS: BP 137/62
[2018-06-18 13:06] VITALS: BP 117/41
[2018-06-18 15:42] VITALS: BP 137/62
[2018-06-18 20:48] VITALS: BP 97/68
[2018-06-19 05:51] VITALS: BP 161/58
[2018-06-19 09:58] VITALS: BP 148/67
[2018-06-19 13:37] VITALS: BP 148/67
[2018-06-19 14:21] VITALS: BP 143/74
[2018-06-19 18:30] VITALS: BP 138/57
[2018-06-19 21:01] VITALS: BP 161/68
[2018-06-20 05:19] VITALS: BP 157/64
[2018-06-20 07:00] LABS: BASOPHIL % 0.3 % (0-2); PLATELET COUNT 346 x10^3mcL (130-400)
[2018-06-20 07:06] LABS: CALCIUM 8.9 mg/dL (8.5-10.1); CARBON DIOXIDE 28.4 mmol/L (21-32); CHLORIDE SERUM 103 mmol/L (98-107); GLUCOSE SERUM 90 mg/dL (74-106); POTASSIUM SERUM 3.6 mmol/L (3.5-5.1); SODIUM SERUM 138 mmol/L (136-145)
[2018-06-20 07:12] LABS: RED CELL DISTRIBUTION WIDTH 14.7 % (11.5-14.5)
[2018-06-20 10:26] VITALS: BP 121/100
[2018-06-20 14:13] VITALS: BP 116/85
[2018-06-20 14:22] VITALS: BP 116/85
== END 2018-06-20 15:09 | disposition hospice, inpatient (51) | DRG 73 ==
LOC: ED 17:40 → MU 22:30 → DU 22:30 → MU 23:45 → DU 06-02 05:26
PROVIDERS: Emergency Medicine; General Practice; Internal Medicine; ADMIT Family Medicine
PROC: 0HQ0XZZ Repair Scalp Skin, External Approach (ICD-10-PCS; principal; 2018-06-01)
DX: G90.8 Other disorders of autonomic nervous system (principal); J69.0 Pneumonitis due to inhalation of food and vomit; N17.0 Acute kidney failure with tubular necrosis; G93.41 Metabolic encephalopathy; J96.01 Acute respiratory failure with hypoxia; Z68.1 Body mass index [BMI] 19.9 or less, adult; I42.0 Dilated cardiomyopathy; S01.81XA Laceration without foreign body of other part of head, initial encounter; G20 Parkinson's disease; S51.011A Laceration without foreign body of right elbow, initial encounter; E86.0 Dehydration; I13.10 Hypertensive heart and chronic kidney disease without heart failure, with stage 1 through stage 4 chronic kidney disease, or unspecified chronic kidney disease; N18.3 Chronic kidney disease, stage 3 (moderate); Z66 Do not resuscitate; Z96.642 Presence of left artificial hip joint; Z87.81 Personal history of (healed) traumatic fracture; W18.39XA Other fall on same level, initial encounter; Y93.89 Activity, other specified; Z91.81 History of falling; Z85.828 Personal history of other malignant neoplasm of skin; Y92.89 Other specified places as the place of occurrence of the external cause; B95.62 Methicillin resistant Staphylococcus aureus infection as the cause of diseases classified elsewhere
CPT/HCPCS: 83880; 84439; 90715; 92526-GN; 92610-GN; 94150; 97110-GP; 97112-GP; 97116-GP; 97530-GP; J1630; J2001; J2060; J2543; J3370; J3475; J3480; J3490; J7030; Q0092